=== PATIENT | male | born 1950 | race Caucasian/White ===

== ENCOUNTER 2017-04-04 06:50 | Day surgery (SDC) | payer MEDICARE, OTHER ==
--- NOTE | 2017-04-03 12:52 | PREOPHP ---
DATE OF ADMISSION: 04/04/2017 HISTORY OF PRESENT ILLNESS: This is a 66-year-old patient who is admitted for elective cataract osorio linwood of the left eye. The patient has had decreased vision for approximately the past 3 months invo lving the left eye with no prior history of eye disease or injury. The patient has a positive syste anai history for hypertension and he is currently taking atenolol and aspirin. The aspirin was disco ntinued 1 week prior to surgery. ALLERGIES: THE PATIENT IS ALLERGIC TO ZITHROMAX. PHYSICAL EXAMINATION: The visual acuity best corrected is 20/30 in the right eye and 20/50 in the l eft eye. Slit lamp examination reveals posterior subcapsular cataract changes greater in the left e ye than the right eye. Applanation tonometry is 16 mmHg. Examination of the retina is within vicki l limits. DIAGNOSIS: Cataract, left eye. PLAN: Cataract extraction with lens implant, left eye. The risks and alternatives to the surgery h ave been discussed with the patient and patient has opted to proceed with surgery in the hopes of im proving visual acuity leading to greater ability to perform activities of daily living. Dictated By: JEREMY RUSSELL/BRIANDA Conf#: [id number] DID#: [id number]
[~2017-04-04] VITALS: Ht 185.4 cm; Wt 100.9 kg
[2017-04-04] VITALS (8 sets, daily range): BP systolic 130–158; BP diastolic 60–97; PULSE 74–76; RESP 16–28; Ht 185.4 cm; Wt 100.9 kg
[~2017-04-04 06:50] MED LIST: ATEN100T PO; AZIT500T2 PO; BENA20TA48 PO; HYDR25TA6 PO
[2017-04-04] MEDS ORDERED: CIPROFLOXACIN 0.3% 2.5 ML OPH OPER SCH (08:00)
[2017-04-04] MEDS ORDERED: DICLOFENAC 0.1% 2.5 ML OPH OPER SCH (08:00)
[2017-04-04] MEDS ORDERED: CYCLOPENTOLATE/PHENYLEPH 2 ML OPH OPER SCH (08:00)
[2017-04-04] MEDS ORDERED: TROPICAMIDE 1% 2 ML OPH OPER SCH (08:00)
[2017-04-04] MEDS ORDERED: BENA40TA41 PO (08:30)
[2017-04-04] MEDS ORDERED: ASPI-664 PO (08:32)
--- NOTE | 2017-04-04 08:51 | RADRPT ---
PROCEDURE: XR Chest 1 View. CLINICAL INDICATION: Abnormal breath sounds, preop. TECHNIQUE: AP view of the chest was obtained. COMPARISON: October 09, 2015 FINDINGS: The heart size is within normal limits. Calcified atherosclerosis is noted in the aorta. Scattered atelectasis is noted in the bilateral lower lobes. No consolidations are identified. No pneumothor ax is seen. The osseous structures are osteopenic, but appear grossly intact. IMPRESSION: Calcified atherosclerosis in the aorta. Scattered atelectasis in the bilateral lower lobes. RPTAT: AA .Ismael Prado MD, MD Date Time Electronically viewed and signed by .Ismael Prado MD, on 04/04/2017 08:50 .P/
[2017-04-04] MEDS ORDERED: CARBACHOL 0.01% 1.5 ML OPH INJ ONE (09:54)
[2017-04-04] MEDS ORDERED: LIDOCAINE 4% (MPF) 5 ML INJ ONE (09:54)
[2017-04-04] MEDS ORDERED: GENTAMICIN 80 MG INJ ONE (09:54)
[2017-04-04] MEDS ORDERED: HYALURONATE/CHONDROITIN 1ML OPH INJ ONE (09:54)
[2017-04-04] MEDS ORDERED: CEFAZOLIN 1 GM INJ ONE (09:54)
[2017-04-04] MEDS ORDERED: EPINEPHrine 1 MG INJ ONE (09:54)
[2017-04-04] MEDS ORDERED: DEXAMETHASONE 4 MG/ML 1 ML INJ ONE (09:54)
[2017-04-04] MEDS ORDERED: HYALURONATE/CHONDROITIN 1ML OPH INJ IO ONE (10:02)
[2017-04-04] MEDS ORDERED: DEXAMETHASONE 4 MG/ML 1 ML INJ INJ ONE (10:02)
[2017-04-04] MEDS ORDERED: CARBACHOL 0.01% 1.5 ML OPH INJ IO ONE (10:02)
[2017-04-04] MEDS ORDERED: CEFAZOLIN 1 GM INJ INJ ONE (10:03)
[2017-04-04] MEDS ORDERED: PROPOFOL 20 ML ONE (10:11)
[2017-04-04] MEDS ORDERED: FENTAnyl 50 MCG/ML VIAL ONE (10:11)
[2017-04-04] MEDS ORDERED: LIDOCAINE 2% (SDV) 5 ML INJ ONE (10:11)
[2017-04-04] MEDS ORDERED: MIDAZOLAM 1 MG/ML 2 ML INJ ONE (10:11)
[2017-04-04] MEDS ORDERED: ONDANSETRON 4 MG INJ IV PRN (11:30)
[2017-04-04] MEDS ORDERED: hydrALAzine 20 MG INJ IV PRN (11:30)
[2017-04-04] MEDS ORDERED: OXYCODONE/ACETAMINOPHEN (5/325) TAB PO PRN (11:30)
[2017-04-04] MEDS ORDERED: HYDROmorphONE (0.2 MG/ML) 10ML SYG IV PRN (11:30)
[2017-04-04] MEDS ORDERED: FENTAnyl 50 MCG/ML VIAL IV PRN (11:30)
[2017-04-04] MEDS ORDERED: LABETALOL HCL 20MG INJ IV PRN (11:30)
--- NOTE | 2017-04-04 12:25 | OPR ---
DATE OF OPERATION: 04/04/2017 PREOPERATIVE DIAGNOSIS: Cataract, left eye. POSTOPERATIVE DIAGNOSIS: Cataract, left eye. PROCEDURE PERFORMED: Cataract extraction with lens implant, left eye. SURGEON: Jeremy Gupta MD ANESTHESIOLOGIST: Wilma Moreno MD ANESTHESIA: Local standby. PROCEDURE: The patient was brought to the operating room and placed on the table with an IV in plac e and the patient attached to an neurology tech. Oxygen was given via face mask. After some intravenous sedation was administered, local anesthesia was given using Xylocaine 2% with epinephrine, mixed with Marcaine 0.5%. This was given in a lid block and retrobulbar injection. The patient was then prepped and draped in the usual sterile manner. A wire lid speculum was inserted between the lids of the left eye. A Superblade was used to enter th e anterior chamber at the corneoscleral limbus at the 10:30 o'clock position. A separate incision wa s made using a 3.0-mm keratome which entered the corneoscleral junction at the 12 o'clock position. Through this 3-mm opening, an irrigating cystitome was introduced into the anterior chamber. The ashley mber was filled with Viscoat and an anterior capsulotomy was performed. Balanced salt solution was t hen used for hydrodissection of the lens. A phacoemulsification handpiece was then brought into the field and introduced into the anterior chamber. The lens nucleus was emulsified using a deep groove and cracking the nucleus into quadrants. Following this, each quadrant was aspirated and emulsified at the pupillary margin. After this was completed, the irrigation/aspiration handpiece was brought to the field, introduced i nto the posterior chamber, and the lens cortical material was removed. When this was completed, carolyn tional Viscoat was injected into the anterior and posterior chambers. The 3-mm opening had its internal lips enlarged, and then the posterior chamber intraocular lens girma suring 20.5 diopters ([employer] model LI61AO) was then injected into the posterior chamber using the lens injector system. After the leading haptic was introduced into the capsular b ag and the lens optic was present in the center of the eye, the injector was removed and the trailin g haptic was grasped with non-toothed forceps and introduced into the capsular fold superiorly. A Si nskey hook was then used to rotate the intraocular lens so that the lips were oriented in the horizo ntal meridian. One 10-0 nylon suture was placed across the wound. Prior to tying, the irrigation/aspiration handpiece was reintroduced into the anterior chamber to re move the Viscoat. Miochol was instilled to constrict the pupil, and then the 10-0 nylon suture was t ied. The ends were cut short and then the knot was buried. Then, 0.5 mL of dexamethasone and 0.5 mL of Ancef were injected into the sub-Tenon space in the infe rior fornix. Ciloxan drops were then placed on the surface of the eye. The speculum was removed and a patch was applied. The patient then left the operating room in satisfactory condition. Dictated By: JEREMY RUSSELL/BRIANDA Conf#: [id number] DID#: [id number]
== END 2017-04-04 12:17 | disposition home or self-care (01) ==
LOC: SDS 06:50
PROVIDERS: ATTEND Ophthalmology
DX: H25.042 Posterior subcapsular polar age-related cataract, left eye (principal); I10 Essential (primary) hypertension; I25.10 Atherosclerotic heart disease of native coronary artery without angina pectoris; I25.2 Old myocardial infarction; F17.200 Nicotine dependence, unspecified, uncomplicated
CPT/HCPCS: 66984; 71010; J0171; J0690; J1100; J1580; J2250; J3010; V2632